=== PATIENT | male | born 1955 | race Caucasian/White ===

== ENCOUNTER 2022-10-04 13:41 | Outpatient (CLI) | payer OTHER | END 2022-10-04 13:42 | disposition home or self-care (01) | LOC: RAD 13:41 | PROVIDERS: ATTEND Family Medicine | DX: M25.551 Pain in right hip (principal); G89.4 Chronic pain syndrome; M16.11 Unilateral primary osteoarthritis, right hip ==

== ENCOUNTER 2024-12-08 09:19 | Inpatient (IN) | payer OTHER ==
[2024-12-08] MEDS ORDERED: Aspirin Chewable 81 MG TAB ONE (09:53)
[2024-12-08 10:00] LABS: #Basophils 0.03 10x3/uL (0.0-0.2); %Basophils 0.5 % (0.0-1.0); %Eosinophils 4.3 % (0.0-10.0); %Lymphocytes 23.5 % (21.0-51.0); %Monocytes 9.5 % (0.0-10.0); %Neutrophils 61.1 % (42.0-75.0); Hematocrit 42.6 % (42.0-52.0); Hemoglobin 14.3 g/dL (14.0-18.0); Mean Corpuscular HGB CONC 33.6 g/dL (32.0-36.0); Mean Corpuscular Hemoglobin 29.2 pg (27.0-31.0); Mean Corpuscular Volume 87.1 fL (78.0-98.0); Mean Platelet Volume 10.1 fL (7.4-10.4); Platelet Count 149 10x3/uL (130-400); RBC Distribution Width 13.9 % (11.5-14.5); Red Blood Cell (RBC) Count 4.89 mill/uL (4.70-6.10)
[2024-12-08] MEDS ORDERED: Nitroglycerin 2% Ointment 1 INCH/1 GM Packet ONE (10:06)
[2024-12-08 10:16] LABS: ALT (SGPT) 44 U/L (Less than 45); AST (SGOT) 38 U/L (11-34); Albumin 4.2 g/dL (3.1-4.5); Alkaline Phosphatase 60 U/L (40-110); Anion Gap 12 mmol/L (10-20); BUN (Urea Nitrogen) 18 mg/dL (8.4-25.7); Bilirubin, Total 0.6 mg/dL (0.3-1.2); Calc. Creatinine Clearance 0 mL/min (70-130); Calcium 9.2 mg/dL (7.8-10.44); Carbon Dioxide 26 mmol/L (23-31); Chloride 109 mmol/L (98-107); Estimated GFR 95; Globulin 2.6 g/dL (2.4-3.5); Glucose 129 mg/dL (80-115); Potassium 4.1 mmol/L (3.5-5.1); Protein, Total 6.8 g/dL (5.8-8.1); Sodium 143 mmol/L (136-145)
[2024-12-08 10:54] LABS: Troponin I 0.254 ng/mL (< 0.028)
[2024-12-08] MEDS ORDERED: Bisacodyl 10 MG SUPP PR PRN (11:12)
[2024-12-08] MEDS ORDERED: Ondansetron PF 4 MG/2 ML Vial IVP PRN (11:12)
[2024-12-08] MEDS ORDERED: Bisacodyl 5 MG TAB PO PRN (11:12)
[2024-12-08] MEDS ORDERED: Senokot S 8.6-50 MG TAB PO PRN (11:12)
[2024-12-08] MEDS ORDERED: Acetaminophen 325 MG TAB PO PRN (11:12)
[2024-12-08] MEDS ORDERED: Enoxaparin 100 MG (1 mL) SYRINGE ONE (11:19)
[2024-12-08 12:37] VITALS: BMI 31.6
[2024-12-08 13:15] LABS: Troponin I 0.687 ng/mL (< 0.028)
[2024-12-08 13:36] LABS: Prothrombin Time 13.1 sec (12.0-14.7)
[2024-12-08 13:50] LABS: PTT 34.6 sec (22.9-36.1)
[2024-12-08] MEDS: Nitroglycerin 2% Ointment 1 INCH/1 GM Packet TOP SCH (14:32)
[2024-12-08] MEDS ORDERED: Gabapentin 100 MG CAP PO PRN (14:41)
[2024-12-08 18:06] LABS: Troponin I 1.094 ng/mL (< 0.028)
[2024-12-08 18:32] LABS: Amphetamine Not Detected (NotDetected); Barbiturates Screen Not Detected (NotDetected); Benzodiazepine Screen Not Detected (NotDetected); Cocaine Metabolite Screen Not Detected (NotDetected); Methadone Not Detected (NotDetected); Methamphetamine Not Detected (NotDetected); Opiate Screen Not Detected (NotDetected); Oxycodone Screen Not Detected (NotDetected); Phencyclidine (PCP) Not Detected (NotDetected); THC/Cannabinoid Screen Detected (NotDetected); Tricyclic Screen Not Detected (NotDetected)
[2024-12-08] MEDS ORDERED: Atorvastatin Calcium 40 MG TAB PO SCH (21:00)
[2024-12-08] MEDS: Metoprolol Tartrate 25 MG TAB PO SCH (22:26)
[2024-12-08] MEDS: Enoxaparin 120 MG/0.8 ML SYRINGE SC SCH (22:44)
[2024-12-08] MEDS: Atorvastatin Calcium 40 MG TAB PO SCH (22:45)
[2024-12-08] MEDS: Famotidine/PF 20 mg/2ml Vial SLOW IVP SCH (22:45)
[2024-12-08] MEDS: traZODone HCl 50 MG TAB PO SCH (22:47)
[2024-12-08] MEDS: Amlodipine 5 MG TAB PO SCH (22:53)
[2024-12-08] MEDS: Losartan 25 MG TAB PO SCH (22:53)
[2024-12-09 05:17] LABS: #Basophils 0.03 10x3/uL (0.0-0.2); %Basophils 0.4 % (0.0-1.0); %Eosinophils 3.8 % (0.0-10.0); %Lymphocytes 23.1 % (21.0-51.0); %Monocytes 9.4 % (0.0-10.0); %Neutrophils 62.6 % (42.0-75.0); Hematocrit 38.7 % (42.0-52.0); Hemoglobin 13.1 g/dL (14.0-18.0); Mean Corpuscular HGB CONC 33.9 g/dL (32.0-36.0); Mean Corpuscular Hemoglobin 29.6 pg (27.0-31.0); Mean Corpuscular Volume 87.4 fL (78.0-98.0); Mean Platelet Volume 10.7 fL (7.4-10.4); Platelet Count 144 10x3/uL (130-400); RBC Distribution Width 14.1 % (11.5-14.5); Red Blood Cell (RBC) Count 4.43 mill/uL (4.70-6.10)
[2024-12-09 05:37] LABS: Hemoglobin A1c 5.8 % (4.0-6.0)
[2024-12-09 07:20] LABS: Anion Gap 10 mmol/L (10-20); BUN (Urea Nitrogen) 18 mg/dL (8.4-25.7); Calc. Creatinine Clearance 121 mL/min (70-130); Calcium 8.8 mg/dL (7.8-10.44); Carbon Dioxide 27 mmol/L (23-31); Cardiac Risk 4.5 (Less than 4.5); Chloride 108 mmol/L (98-107); Cholesterol 131 mg/dl (< 200 Desired); Estimated GFR 93; Glucose 87 mg/dL (80-115); HDL Cholesterol 29 mg/dL (>60 Neg Risk); LDL Cholesterol, Calculated 76 mg/dL; Magnesium 1.9 mg/dL (1.6-2.6); Potassium 3.8 mmol/L (3.5-5.1); Sodium 141 mmol/L (136-145); Triglycerides 128 mg/dL (Less than 150)
[2024-12-09 07:28] LABS: ALT (SGPT) 39 U/L (Less than 45); AST (SGOT) 42 U/L (11-34); Albumin 3.9 g/dL (3.1-4.5); Alkaline Phosphatase 52 U/L (40-110); Bilirubin, Direct 0.2 mg/dL (0.1-0.3); Bilirubin, Total 0.6 mg/dL (0.3-1.2)
[2024-12-09] MEDS: Aspirin Chewable 81 MG TAB PO SCH (09:22)
[2024-12-09] MEDS: Finasteride 5 MG TAB PO SCH (09:22)
[2024-12-09] MEDS: Tamsulosin HCl 0.4 MG CAP PO SCH (09:22)
[2024-12-09] MEDS ORDERED: CATH FS PRN (10:45)
[2024-12-09] MEDS ORDERED: Benzocaine/Menthol 1 LOZ LOZ PO PRN (21:10)
[2024-12-10 04:40] LABS: #Basophils 0.03 10x3/uL (0.0-0.2); %Basophils 0.5 % (0.0-1.0); %Eosinophils 3.8 % (0.0-10.0); %Lymphocytes 27.2 % (21.0-51.0); %Monocytes 10.7 % (0.0-10.0); %Neutrophils 56.9 % (42.0-75.0); Hematocrit 41.6 % (42.0-52.0); Hemoglobin 13.8 g/dL (14.0-18.0); Mean Corpuscular HGB CONC 33.2 g/dL (32.0-36.0); Mean Corpuscular Hemoglobin 29.4 pg (27.0-31.0); Mean Corpuscular Volume 88.7 fL (78.0-98.0); Mean Platelet Volume 10.6 fL (7.4-10.4); Platelet Count 154 10x3/uL (130-400); RBC Distribution Width 14.1 % (11.5-14.5); Red Blood Cell (RBC) Count 4.69 mill/uL (4.70-6.10)
[2024-12-10 05:02] LABS: Anion Gap 11 mmol/L (10-20); BUN (Urea Nitrogen) 14 mg/dL (8.4-25.7); Calc. Creatinine Clearance 120 mL/min (70-130); Calcium 9.4 mg/dL (7.8-10.44); Carbon Dioxide 25 mmol/L (23-31); Chloride 108 mmol/L (98-107); Estimated GFR 93; Glucose 89 mg/dL (80-115); Magnesium 2.1 mg/dL (1.6-2.6); Potassium 3.7 mmol/L (3.5-5.1); Sodium 140 mmol/L (136-145)
[2024-12-10] MEDS ORDERED: Verapamil 5 MG/2 ML VIAL ONE ×2 (09:00→10:12)
[2024-12-10] MEDS ORDERED: Nitroglycerin 50 MG/250 ML BOT 250 ML ONE (09:00)
[2024-12-10] MEDS ORDERED: Midazolam HCl 2 mg/2 ml Vial ONE (09:00)
[2024-12-10] MEDS ORDERED: fentaNYL 50 mcg/mL 1 mL Vial ONE (09:00)
[2024-12-10] MEDS ORDERED: Heparin 10,000 UNITS/ 10 ML VIAL ONE ×2 (09:00→10:12)
[2024-12-10] MEDS ORDERED: Iopamidol 370 76% 100 ML VIAL ONE (09:03)
[2024-12-10] MEDS ORDERED: TICAGRELOR 90 MG TABLET ONE (10:21)
[2024-12-10] MEDS ORDERED: Nitroglycerin 0.4 MG TAB (25 Tab Bottle) SL PRN (10:49)
[2024-12-10] MEDS ORDERED: Morphine 2 MG/ML VIAL SLOW IVP PRN (10:49)
[2024-12-10] MEDS: Sodium Chloride 0.9% 500 ML IV SCH (12:29)
[2024-12-11 05:01] LABS: #Basophils Less than 0.03 10x3/uL (0.0-0.2); %Basophils 0.3 % (0.0-1.0); %Eosinophils 4.2 % (0.0-10.0); %Lymphocytes 20.8 % (21.0-51.0); %Monocytes 11.4 % (0.0-10.0); %Neutrophils 62.7 % (42.0-75.0); Hematocrit 43.5 % (42.0-52.0); Mean Corpuscular HGB CONC 34.5 g/dL (32.0-36.0); Mean Platelet Volume 10.4 fL (7.4-10.4); Platelet Count 153 10x3/uL (130-400); RBC Distribution Width 13.9 % (11.5-14.5)
[2024-12-11 05:52] LABS: ALT (SGPT) 55 U/L (Less than 45); AST (SGOT) 53 U/L (11-34); Albumin 4.2 g/dL (3.1-4.5); Alkaline Phosphatase 62 U/L (40-110); Anion Gap 14 mmol/L (10-20); BUN (Urea Nitrogen) 13 mg/dL (8.4-25.7); Calc. Creatinine Clearance 110 mL/min (70-130); Calcium 9.5 mg/dL (7.8-10.44); Carbon Dioxide 26 mmol/L (23-31); Chloride 109 mmol/L (98-107); Estimated GFR 87; Globulin 2.6 g/dL (2.4-3.5); Glucose 94 mg/dL (80-115); Magnesium 2.1 mg/dL (1.6-2.6); Potassium 4.3 mmol/L (3.5-5.1); Protein, Total 6.8 g/dL (5.8-8.1); Sodium 145 mmol/L (136-145)
[2024-12-11] MEDS: Clopidogrel Bisulfate 75 MG TAB PO SCH (09:25)
[2024-12-11 16:21] VITALS: BP 155/72; TEMP 97.6
== END 2024-12-11 18:33 | disposition home or self-care (01) | DRG 322 ==
LOC: ERS 09:19 → SUATTDRO 09:19 → 2NO 12:10
PROVIDERS: ADMIT Family Medicine; ATTEND Family Medicine
PROC: 027034Z Dilation of Coronary Artery, One Artery with Drug-eluting Intraluminal Device, Percutaneous Approach (ICD-10-PCS; principal; 2024-12-10)
PROC: 4A023N7 Measurement of Cardiac Sampling and Pressure, Left Heart, Percutaneous Approach (ICD-10-PCS; 2024-12-10)
PROC: B2151ZZ Fluoroscopy of Left Heart using Low Osmolar Contrast (ICD-10-PCS; 2024-12-10)
PROC: B2111ZZ Fluoroscopy of Multiple Coronary Arteries using Low Osmolar Contrast (ICD-10-PCS; 2024-12-10)
DX: I21.4 Non-ST elevation (NSTEMI) myocardial infarction (principal); I10 Essential (primary) hypertension; N40.0 Benign prostatic hyperplasia without lower urinary tract symptoms; F12.90 Cannabis use, unspecified, uncomplicated; G47.00 Insomnia, unspecified; R00.1 Bradycardia, unspecified; Z71.6 Tobacco abuse counseling; Z95.818 Presence of other cardiac implants and grafts; I25.10 Atherosclerotic heart disease of native coronary artery without angina pectoris; E78.5 Hyperlipidemia, unspecified
CPT/HCPCS: 36415; 71045; 80048; 80053; 80061; 80076; 80306; 83036; 83735; 84443; 84484; 85025; 85347; 85610; 85730; 86850; 86900; 86901; 92928; 93005; 93010; 93306; 93458; 93798; 96372; 99152; 99153; C1769; C1874; C1887; C1894; C9600; J1644; J1650; J2250; J3010; J3490; J7030; Q9967